=== PATIENT | female | born 1950 | race Caucasian/White ===

== ENCOUNTER → 2019-02-10 07:08 | Outpatient (CLI) | payer MEDICARE, OTHER, SELFPAY ==
--- NOTE | 2019-02-10 07:27 | MRI_ITS ---
STUDY: MRI BRAIN WITHOUT CONTRAST (ATTENTION INTERNAL AUDITORY CANALS - I.A.C.'s) REASON FOR EXAM: Female, 68 years old. Acute right hearing loss TECHNIQUE: Standardized multiplanar fat and water weighted pulse sequences were obtained. COMPARISON: None. FINDINGS: Normal bilateral internal auditory canals. There is no demonstrated intracanalicular or cisternal vestibular schwannoma (acoustic neuroma) on this unenhanced examination. Normal visualized bilateral cochlea, vestibules and semicircular canals. Normal bilateral mastoid air cells. Normal midbrain, adalberto and medulla. Normal cerebellum. Normal basal cisterns. Normal size of the ventricles and extra-axial spaces for the patient's age. Normal white matter tracts of the supratentorial brain. Normal bilateral basal ganglia. Normal thalami. There is no extra-axial fluid accumulation. Normal flow voids within the major intracranial circulation suggesting patency by spin echo criteria. Normal sella turcica, pituitary gland, infundibular stalk, optic chiasm and hypothalamus. Normal tectal plate and pineal gland. No demonstrated orbital abnormality, within the constraints of a routine brain study. Normal visualized paranasal sinuses. Normal calvarium and skull base. Normal visualized soft tissue structures. MRI/Brain without Contrast IMPRESSION: Normal unenhanced MRI of the bilateral internal auditory canals (I.A.C's). Normal unenhanced MRI of the brain. Electronically Signed: Kristofer Carter, at 10:43 EDT Tel , Service support ,
[2019-02-10 08:11] LABS: CREATININE FINGERSTICK 1.3 mg/dL (0.55-1.02)
== END ==
PROVIDERS: Family Provider Nurse Practitioner Primary Care; PCP Nurse Practitioner Primary Care; Referring Provider Otolaryngology; Visit Provider Otolaryngology
DX: H91.91 Unspecified hearing loss, right ear (principal)
CPT/HCPCS: 70551

== ENCOUNTER 2023-05-16 14:51 | Emergency (ER) | payer MEDICARE, SELFPAY ==
[2023-05-16] VITALS (7 sets, daily range): BP systolic 124–158; BP diastolic 60–74; PULSE 60–76; RESP 12–18; TEMP 36.6; O2SAT 93–100; BMI 35.9
--- NOTE | 2023-05-16 15:03 | CT_ITS ---
INDICATION: dissection study EXAMINATION: CTA CHEST, ABDOMEN AND PELVIS WITH CONTRAST - TECHNIQUE: A CTA of the chest, abdomen, and pelvis is obtained with sagittal and coronal reconstructed MIP views. Three-dimensional surface rendered sequence of the thoracic and abdominal aorta was obtained. A radiation dose optimization technique was used for this scan. mL of Isovue-370. Oral contrast: None. COMPARISON: None. FINDINGS: CT CHEST: THORACIC AORTA: No atheromatous disease, no aneurysmal changes or dissection. ABDOMINAL AORTA: No aneurysm or dissection. No significant atheromatous disease. The iliac arteries are unremarkable. LUNGS: The lungs are well-expanded without acute or chronic changes. No effusions or pneumothorax. MEDIASTINUM: The thyroid gland is normal. No mediastinal or hilar adenopathy. HEART: Heart is normal size. No pericardial effusion. No CAD. CT ABDOMEN AND PELVIS: LIVER: 1 synovitis cyst in the anterior aspect of the right lobe of the liver. Subcentimeters cyst is seen in the posterior lateral aspect of the midportion of the right lobe of the liver. GALLBLADDER: The CBD is normal. Normal gallbladder. SPLEEN: Normal. PANCREAS: No masses or inflammation. ADRENAL GLANDS: Normal. KIDNEYS AND URETERS: The kidneys both enhance appropriately. There are normal size and shape. No hydronephrosis or nephrolithiasis. No renal masses or cysts. STOMACH: Normal. SMALL BOWEL: No abnormal distention of the small bowel. MESENTERY: No mesenteric inflammation. No ascites. COLON: Sigmoid diverticulosis. The colon otherwise is normal. There is a large fatty ileocecal valve. APPENDIX: The appendix is visualized and normal. IVC: Normal. RETROPERITONEUM: No retroperitoneal lymphadenopathy. PELVIC STRUCTURES: Normal bladder. The patient is status post hysterectomy. SOFT TISSUES ABDOMEN: The anterior abdominal wall is normal. SOFT TISSUE CHEST: The extrathoracic soft tissues are normal. BONES: Mild degenerative changes of the visualized lumbar spine. CT/CTA Chst, Abd, Pel W and/or WO IMPRESSION: No evidence of a thoracic or abdominal aortic dissection. Normal contrast-enhanced CT of the chest. Normal contrast-enhanced CT of the abdomen and pelvis. Electronically Signed: Mike Dennis MD at 15:41 EDT ,
--- NOTE | 2023-05-16 15:03 | EKG12_ITS ---
Test Reason : dissection Blood Pressure : / mmHG Vent. Rate : 068 BPM Atrial Rate : 068 BPM P-R Int : 234 ms QRS Dur : 086 ms QT Int : 392 ms P-R-T Axes : 063 -32 027 degrees QTc Int : 416 ms Sinus rhythm with 1st degree A-V block Left axis deviation Abnormal ECG Confirmed by GRIS MIRELES, BARRIE ([id number]), digital editor DI AYALA ([id number]) on 05/17/2023 10:09:02 AM Referred By: Justin Confirmed By:BARRIE LANDRY MD
[2023-05-16 15:24] LABS: Absolute Lymphocyte Count 1.85 X10^3/uL (0.83-4.51); Absolute Neutrophil Count 3.8 X10^3/uL (2.0-7.7); Basophil# 0.03 X10^3/uL; Basophil% 0.5 % (0-1); Eosinophil# 0.08 X10^3/uL; Eosinophils% 1.3 % (0-5); Hematocrit 43.9 % (37-47); Lymphocyte # 1.85 X10^3/ul (0.83-4.51); Lymphocyte % 30.4 % (19-41); Mean Corp Hgb Conc 34.2 g/dL (32-36); Mean Corpuscular Volume 87.8 fL (81-99); Mean Platelet Vol. 9.5 fl (6.2-12.0); Monocyte# 0.31 X10^3/uL; Monocyte% 5.1 % (0-10); NRBC Flagged by Analyzer 0 % (0-5); Neutrophil % 62.5 % (47-70); Platelet Count 232 K/mm3 (150-450); RBC Distribution Width CV 13.2 % (11.6-14.6); RBC Distribution Width SD 42.6 fl (35.1-43.9); White Blood Count 6.1 K/mm3 (4.4-11.0)
[2023-05-16 15:40] LABS: Partial Thromboplast Time 29.6 Seconds (24.1-36.2); Prothrombin Time (Protime)PT. 12.7 SECONDS (11.7-14.9)
[2023-05-16 15:43] LABS: Anion Gap 8 (5-15); BUN 16 mg/dL (7-18); BUN/Creat Ratio 13.8 RATIO (10-20); Chloride 106 mmol/L (98-107); Creatinine, Serum 1.16 mg/dL (0.55-1.02); EST Glomerular Filtration Rate 49 mL/min (>60); Est Glom Filt Rate - Afr Amer 59 mL/min (>60); Estimated Creatinine Clearance 34.05 ml/min; Glucose 152 mg/dL (74-106); Potassium 3.3 mmol/L (3.5-5.1); Sodium Level 140 mmol/L (136-145); Troponin-I HS (w/2H Reflex) 4 pg/mL (3.0-54.0)
[2023-05-16 15:49] LABS: AST(SGOT) 36 U/L (15-37); Alanine Aminotransfer ALT/SGPT 31 U/L (13-56); Albumin, Serum 3.5 g/dL (3.2-5.0); Alkaline Phosphatase 144 U/L (45-117); Bilirubin, Direct 0.27 mg/dL (0.00-0.30); Globulin 3.6 g/dL (2.2-4.2); Protein, Total 7.1 g/dL (6.4-8.2)
--- NOTE | 2023-05-16 15:53 | ED.VIS.CHEST ---
HPI History of Present Illness Chief Complaint: Abd Pain Informant: patient Narrative Narrative: Patient is a 72-year-old female with history of hyperlipidemia presenting with sudden onset of epigastric pain rating to her back. Describes it as sharp and tearing. She also states it radiates to her bilateral ribs. She states because of this discomfort she did start hyperventilating and felt tingly all over. She is never anything like before. She states she was reading a romance book at the time that this started and was not exerting herself at all. Notes her pain is slightly improved at this time. Declines anything for pain. Denies any nausea or vomiting. Denies any recent illness. No other complaints or concerns at this time. Denies any weakness of her arms or her legs. [facility], [facility] Medical History Chest pain Home Medications aspirin 81 mg capsule 81 mg PO QHS 05/16/23 [History Last Taken Unknown] atorvastatin 40 mg tablet 40 mg PO QHS 05/16/23 [History Last Taken Unknown] omeprazole 20 mg capsule,delayed release 20 mg PO DAILY #30 CAPSULES 05/16/23 [Rx Last Taken Unknown] Allergy/AdvReac Type Severity Reaction Status Date / Time No Known Allergies Allergy Verified 05/16/23 14:53 Social History Smoking Status: Never smoker ROS ROS ED Constitutional Constitutional ED: Denies chills, fever(s) or sweats Eyes Eyes: Denies change in vision ENT ENT ED: Denies sore throat Cardiovascular Cardiovascular: Reports as per HPI and chest pain; Denies palpitations Respiratory/Chest Respiratory/Chest: Reports dyspnea; Denies cough Gastrointestinal Gastrointestinal: Reports abdominal pain; Denies diarrhea, nausea or vomiting Neurologic Neurologic: Reports paresthesias; Denies headache(s) Psychiatric Psychiatric: Denies anxiety EXAM Physical Exam Const Vital Signs: 05/16/23 14:53 05/16/23 14:55 05/16/23 14:56 Temperature 98 F Temperature Source Temporal Pulse Rate 76 Respiratory Rate 18 Respiratory Effort Normal Non-Labored Blood Pressure 150/71 H Blood Pressure Mean 97 Pulse Ox 100 Oxygen Delivery Method Room Air 05/16/23 15:10 05/16/23 16:00 05/16/23 18:27 Temperature Temperature Source Pulse Rate 73 74 Respiratory Rate 12 14 Respiratory Effort Blood Pressure 124/74 H 136/60 H Blood Pressure Mean 90 85 Pulse Ox 93 99 Oxygen Delivery Method Room Air Room Air Room Air 05/16/23 19:00 05/16/23 20:00 05/16/23 20:46 Temperature Temperature Source Pulse Rate 60 65 69 Respiratory Rate 16 16 16 Respiratory Effort Blood Pressure 142/64 H 158/71 H 157/70 H Blood Pressure Mean 90 100 Pulse Ox 96 96 96 Oxygen Delivery Method Room Air Room Air Positive well nourished and well developed General Appearance ED: well developed and NAD HEENT Reports moist mucous membranes normocephalic and atraumatic Eyes PERRL Neck supple and no JVD Chest Wall inspection of chest normal and palpation of chest normal Resp normal respiratory effort and clear to auscultation bilaterally Cardio regular rate, regular rhythm and no murmurs Peripheral Pulses: pulses 2+ throughout GI normal to inspection, nondistended, normoactive bowel sounds, soft to palpation and non-tender Back/Spine no CVA tenderness Extremity normal to inspection Neuro oriented x3 Sensorium / Orientation: awake and alert Motor Exam: Negative for general weakness Psych mental status grossly normal Mood & Affect: anxious Skin no rashes or lesions noted Heart Score History: Moderately Suspicious ECG: Normal Age: >/= 65 years Risk Factors: 1 or 2 Risk Factors Troponin: </= Normal Limit Score: 4 MDM MDM MDM Narrative Medical decision making narrative: Patient evaluated for sudden onset of lower sternum/epigastric pain rating to her back and around her ribs. She describes as tearing. Due to the patient's age and the description of the pain a dissection study is ordered. Blood pressure is only mildly elevated. Cardiac and belly work-up also ordered. Patient initially declines any analgesic in the emergency room. CTA is negative for acute aortic pathology. EKG is nonischemic. High-sensitivity troponin is normal at 4 and 4. CBC and CMP largely normal. On repeat evaluation she states she is still having a milder pain in her epigastric region that radiates to the left and right. She is amenable to trying Toradol. Do question if this could be some type of biliary pathology causing it and right upper quadrant ultrasound was ordered. Right upper quadrant ultrasound shows hyperechoic liver compatible with hepatocellular disease such as steatosis and a normal-appearing gallbladder. On repeat evaluation patient states she now only has a burning sensation in the center of her chest. She is given a GI cocktail for this. She comments that she had been on omeprazole long-term in the past but when off in the past year. Question of this could be some type of esophagitis/gastritis/GERD that is causing her presentation today. We will start the patient back on omeprazole. Patient counseled that I would recommend outpatient cardiac evaluation but this time I do not think she requires admission. I also recommend further GI follow-up for her symptoms. Patient is agreeable with this. Patient is given return precautions. She is discharged home in improved and stable condition. Lab Data Attestation: I reviewed the patient's lab results. Labs: Laboratory Results - last 24 hr 05/16/23 05/16/23 15:04 17:25 WBC 6.1 RBC 5.00 Hgb 15.0 Hct 43.9 MCV 87.8 MCH 30.0 MCHC 34.2 RDW Std Deviation 42.6 RDW Coeff of Wilma 13.2 Plt Count 232 MPV 9.5 Immature Gran % (Auto) 0.200 Neut % (Auto) 62.5 Lymph % (Auto) 30.4 [place] % (Auto) 5.1 Eos % (Auto) 1.3 Baso % (Auto) 0.5 Absolute Neuts (auto) 3.8 Absolute Lymphs (auto) 1.85 Nucleated RBC % 0 PT 12.7 INR 1.0 APTT 29.6 Sodium 140 Potassium 3.3 L Chloride 106 Carbon Dioxide 26.0 Anion Gap 8 BUN 16 Creatinine 1.16 H Estim Creat Clear Calc 34.05 Est GFR (MDRD) Af Amer 59 L Est GFR (MDRD) Non-Af 49 L BUN/Creatinine Ratio 13.8 Glucose 152 H Calcium 9.0 Total Bilirubin 0.60 Direct Bilirubin 0.27 AST 36 ALT 31 Alkaline Phosphatase 144 H Troponin I High Sens 4 4 Total Protein 7.1 Albumin 3.5 Globulin 3.6 Radiography Diagnostic Testing: Clinical Impression(s) from Imaging Studies Chest/Abdomen/Pelvis CTA 05/16/23 15:03 IMPRESSION: No evidence of a thoracic or abdominal aortic dissection. Normal contrast-enhanced CT of the chest. Normal contrast-enhanced CT of the abdomen and pelvis. Electronically Signed: Mike Dennis MD at 15:41 EDT , Gallbladder Ultrasound 05/16/23 18:09 IMPRESSION: Hyperechoic liver compatible with hepatocellular disease such as steatosis. Normal-appearing gallbladder. Electronically Signed: Rm Meza MD at 19:18 EDT , Rhythm Strip Rhythm Strip: Sinus Rhythm Rate: 68 Ectopy: None EKG Initial EKG: Attestation: I personally reviewed and interpreted this EKG as follows: Comments: Normal sinus rhythm at a rate of 68 beats per minutes First-degree AV block with a MI interval of 234 Left axis deviation Normal ST segments Prior EKG tracings: not available for review Prior: No Prior Discharge Plan Triage Chief Complaint: Abd Pain Other Complaint: Back Chest Pain ED Provider: Kathryn Sales Dx/Rx/DC Orders Clinical Impression: Acute chest pain, Acute epigastric pain Instructions: ED Epigastric Pain Uncertain Cause Prescriptions: New omeprazole 20 mg capsule,delayed release(DR/EC) 20 mg PO DAILY Qty: 30 0RF No Action atorvastatin 40 mg tablet 40 mg PO QHS Patient Comments: TAKE 1 TABLET BY MOUTH AT BEDTIME aspirin 81 mg capsule 81 mg PO QHS Primary Care Provider: Ruthy Salas NP Referrals: Marko Dale DO [Med Staff - Active Staff] - As Needed Ruthy Salas NP, RF TEST TECHNICIAN-C [Primary Care Provider] - Activity Restrictions/Additional Instructions: Your work-up today was largely normal with no signs of acute stress on your heart, heart attack, acute cholecystitis (gallbladder attack) or other acute infection. It is possible this could be GI cause/reflux. We will start you on an antacid again. I do recommend you follow-up with your primary care doctor for further cardiac evaluation as well to be thorough. Your ultrasound did show findings of the liver consistent with steatosis and a normal-appearing gallbladder. This can be seen with fatty liver. Please follow-up with GI for this. You been given referral. Disposition Disposition: Home, Self Care Discharge Date/Time: 05/16/23 20:56
[2023-05-16 17:15] LABS: Reflex Troponin-HS? (from REC) Y
[2023-05-16 17:52] LABS: Troponin-I HS 4 pg/mL (3.0-54.0)
--- NOTE | 2023-05-16 18:09 | US_ITS ---
INDICATION: RUQ pain EXAMINATION: Ultrasound US Abdomen RUQ (limited) TECHNIQUE: Rivera scale and color doppler imaging was performed of the right upper quadrant. COMPARISON: None. FINDINGS: LIVER: Hyperechoic parenchyma. No focal hepatic lesion. There is no free fluid. GALLBLADDER AND BILIARY TREE: No shadowing gallstone, pericholecystic fluid or gallbladder wall thickening is demonstrated. Gallbladder sludge. The proximal common bile duct measures 7 mm, which is within normal limits for the patient''s age. Sonographic Atn''s sign: Negative. PANCREAS: No focal abnormality is demonstrated in the pancreas. No pancreatic ductal dilatation. RIGHT KIDNEY: 9.1 x 5.2 x 4.6 cm. No hydronephrosis. US/Gallbladder IMPRESSION: Hyperechoic liver compatible with hepatocellular disease such as steatosis. Normal-appearing gallbladder. Electronically Signed: Rm Meza MD at 19:18 EDT ,
[2023-05-16] MEDS: Ketorolac 15 MG/ML Vial IV (18:26)
[2023-05-16] MEDS: Mag Hydrox/Al Hydrox/Simeth 30 ML UDC PO (20:50)
== END 2023-05-16 20:56 | disposition home or self-care (01) ==
PROVIDERS: Emergency Provider Emergency Medicine; PCP Nurse Practitioner Primary Care; Visit Provider Emergency Medicine
DX: R07.9 Chest pain, unspecified (principal); R10.13 Epigastric pain; R06.4 Hyperventilation; R06.00 Dyspnea, unspecified; E78.5 Hyperlipidemia, unspecified; Z79.82 Long term (current) use of aspirin; Z79.899 Other long term (current) drug therapy
CPT/HCPCS: 71275; 74174; 76705; 80048; 80076; 84484; 85025; 85610; 85730; 93005; 96374; 99285; J7030; Q9967; A4216